=== PATIENT | female | born 1975 | race Caucasian/White ===

== ENCOUNTER 2018-08-10 21:53 | Emergency (ER) | payer MEDICAID, SELFPAY ==
[2018-08-10 21:56] VITALS: BP 161/83; PULSE 92; RESP 26; TEMP 36.5; O2SAT 100
--- NOTE | 2018-08-10 22:04 | DI.CT_ITS ---
SYMPTOM/DIAGNOSIS: EPIGASTRIC ABD PAIN RADIATING TO BACK, ? AAA RUPTURE, CHOLECYSTITIS, APPENDICITIS OR SMALL BOWEL OBSTRUCTION CTA CHEST, ABDOMEN AND PELVIS: CT angiography was performed with multi slice acquisition and multi planar and 3D reconstruction. CT angiography of the chest, abdomen and pelvis was performed with a bolus infusion of 100 cc's of Omnipaque 350. There is no evidence of pulmonary embolic disease. Thoracic aorta and abdominal aorta appear normal. Major thoracic vessels appear normal. Unremarkable appearance of celiac trunk, SMA, INDIRA, renal arteries and iliac arteries bilaterally to the level of the proximal femoral arteries. Lungs are clear. No pleural effusion or pleural based mass. Tracheobronchial tree appears intact. No mediastinal or hilar adenopathy. No axillary or supraclavicular adenopathy. The liver, spleen and pancreas appear normal. There is cholelithiasis with question of asymmetric wall thickening of the gallbladder, cholecystitis or neoplasm not excluded. Correlation with ultrasound is recommended. Adrenals appear normal. There are multiple apparent small bilateral renal cysts. No abdominal or pelvic adenopathy. No evidence of urinary tract calcification or obstruction. Small fat containing umbilical hernia noted. No other significant abdominal wall hernia is seen. Appendix is normal. No evidence of bowel obstruction or diverticulitis. FLAT LOCKER structures are CT normal. IMPRESSION: Negative CTA chest, abdomen and pelvis.
[2018-08-10 22:22] LABS: Abs Immature Grans 0.04 k/cumm (0.0-0.09); HCT 38.8 % (36.0-46.0); HGB 13.5 g/dL (12.0-15.5); Mean Corp. HGB Concentration 34.8 g/dL (32.0-36.0); Mean Corpuscular Hemoglobin 31.6 pg (27.0-33.0); Mean Corpuscular Volume 90.9 fL (80-95); Mean Platelet Volume 10.7 fL (8.0-11.0); Platelet Count 244 x1000/uL (130-400); RBC 4.27 m/cumm (4.00-5.20); RBC Distribution Width 13.5 % (11.7-14.6); White Blood Cell Count 12.21 k/cumm (4.4-10.8)
[2018-08-10 22:23] LABS: Bilirubin Small (Negative); Blood Negative (Negative); Clarity Sl Cloudy; Glucose Negative (Negative); Ketones Trace mg/dL (Negative); Leukocyte Esterase Trace (Negative); Nitrite Negative (Negative); Specific Gravity >= 1.030 (1.005-1.025); Urobilinogen 0.2 EU/dL (Up TO 0.2); pH 5.5 (5-8)
[2018-08-10] MEDS: MORPHine 10 MG/ML VIAL 4 MG IVP (22:24)
[2018-08-10] MEDS: Normal Saline 1,000 ML 1000 ML IV (22:24)
[2018-08-10 22:40] LABS: Bacteria Rare HPF (Negative); Crystals Negative HPF (Negative); Epithelial Cells Moderate HPF (Negative); RBC 0-2 (0-2); WBC 20-50 HPF (0-5)
[2018-08-10 22:41] LABS: C & S Indicated? Yes; Casts Negative LPF (Negative); Mucus Trace (Negative)
[2018-08-10 22:52] LABS: Absolute Lymphocyte Count 2.44 k/cumm (1.2-3.4); Absolute Monocyte Count 0.49 k/cumm (0.11-0.7); Absolute Neutrophil Count 9.28 k/cumm (1.2-6.7); Atypical Lymphocytes % 5
[2018-08-10 22:53] LABS: Diff Comment Manual Differential; RBC Morphology Normal
[2018-08-10] MEDS: Omnipaque 350 MG/ML 100 ML BTL IJ (22:56)
[2018-08-10 22:57] LABS: Lipase 179 U/L (73-393); Magnesium 2.1 mg/dL (1.8-2.4)
[2018-08-10 23:03] LABS: ALT 21 U/L (12-78); AST 24 U/L (15-37); Albumin 3.3 g/dL (3.4-5.0); Alkaline Phosphatase 69 U/L (46-116); Anion Gap 13.2 mmol/L (3-11); BUN 13 mg/dL (7-18); Bilirubin, Total 0.3 mg/dL (0.2-1.0); CO2 23.8 mmol/L (21.0-32.0); CREATININE 0.97 mg/dL (0.55-1.02); Calcium 9.4 mg/dL (8.5-10.1); Chloride 98 mmol/L (98-107); Glucose 201 mg/dL (70-100); Potassium 3.8 mmol/L (3.5-5.1); Sodium 135 mmol/L (136-145); Total Protein 8.7 g/dL (6.4-8.2)
[2018-08-10 23:04] LABS: Troponin I < 0.02 ng/mL (0.00-0.06)
--- NOTE | 2018-08-10 23:38 | ED.GENADUL_ITS ---
Discharge Plan Disposition Patient Disposition: HOME Condition: Improving Discharge Details Chief Complaint: Abd Prob Clinical Impression: Biliary colic, Cholelithiasis, UTI (urinary tract infection) Reason For Visit: PHILLIP Primary Care Provider: Neelam Guerrero ED Provider: Yoselin Oconnor Home Meds and New Rx's Prescriptions: New cephalexin [Keflex] 500 mg capsule 500 mg PO BID 5 Days Qty: 10 RF: 0 Continued aspirin [Aspirin Low-Strength] 81 MG tablet,chewable 162 mg PO DAILY RF: 0 atorvastatin 80 MG tablet 80 mg PO DAILY Qty: 90 RF: 3 nitroglycerin 0.4 MG tablet, sublingual 0.4 mg Sublingual Q10MIN Qty: 25 RF: 11 metoprolol succinate 50 mg tablet extended release 24 hr 50 mg PO DAILY Qty: 90 RF: 3 lisinopril 10 mg tablet 10 mg PO DAILY Qty: 90 RF: 3 Discharge Instructions Instructions: Biliary Colic (ED), Urinary Tract Infection in Women (ED) Additional Instructions: Take the antibiotics until finished. Return to the hospital tomorrow to obtain your gallbladder ultrasound for follow-up of the results and the emergency department. Alternate Tylenol and Motrin as needed and directed for pain. Limit your amount of fried or fatty type foods as they can make your pain worse. Follow-up with your primary care doctor in 1 week for reevaluation as needed. Return immediately to the emergency department any worsening or new concerning symptoms. Discharge Data Discharge Physician: Yoselin Oconnor Medical Decision Making 43-year-old female with history of DC, hypertension, hyperlipidemia and 2 cardiac stents who presents with abdominal pain with radiation to her back since 6 PM tonight. States no menses for the last 3 months, but has been irregular for several months. No chest pain or shortness of breath. Blood pressure mildly hypertensive. Heart rate 90s. Remainder vitals within normal limits. Afebrile. Urine test negative. EKG notes a rate of 89, sinus, no acute ST findings. Differential diagnosis includes ruptured AAA, cholecystitis, appendicitis, small bowel obstruction, colitis. Will place an IV, labs, urinalysis, CT abdomen and pelvis, bolus IV fluids and will give a dose of morphine. 1215am --labs and imaging reviewed. White blood cell count 12. Urinalysis notes 20-50 WBCs, trace leukocyte esterase, urine culture sent. With UTI symptoms, will treat with antibiotics for UTI. CT notes cholelithiasis as well as some thickening or contraction of the gallbladder with recommendation for nonemergent ultrasound. Patient states her pain is much improved and she is requesting to go home. With normal vital signs, normal liver function, I do not see an indication for emergent ultrasound and patient is agreeable. Patient states she has had this pain intermittently for months, and worse tonight after eating fried chicken. An order was placed for a gallbladder ultrasound and patient was instructed to return to the hospital tomorrow for this ultrasound in the morning and to follow-up in the emergency department for results. She was sent home with a prescription for Keflex. She is instructed to alternate Tylenol and Motrin, limit fried or fatty foods, and to return here tomorrow morning for ultrasound and anytime earlier for any worsening symptoms. Medical Records Medical records reviewed: Yes I reviewed the patient's medical records. Imaging Data Radiologic Study: Radiologist's impression: CT Angiography Chest With Contrast EXAM DATE/TIME: 08/10/2018 10:40 PM FINDINGS: Pulmonary arteries: Unremarkable. No obvious pulmonary emboli. Aorta: Unremarkable. No aortic aneurysm. No aortic dissection. Lungs: Unremarkable. No consolidation. No masses. No suspicious nodules. Pleural space: Unremarkable. No pneumothorax. No pleural effusion. Heart: Unremarkable. No pericardial effusion. No obvious heart strain. Lymph nodes: Unremarkable. No enlarged lymph nodes. Bones/joints: Unremarkable. No acute fracture. Soft tissues: Unremarkable. IMPRESSION: No acute findings. CT Angiography Abdomen and Pelvis With Contrast EXAM DATE/TIME: 08/10/2018 10:40 PM FINDINGS: VASCULATURE: Aorta: No aortic aneurysm. No aortic dissection. Celiac trunk and mesenteric arteries: No occlusion or significant stenosis. Renal arteries: No occlusion or significant stenosis. Right iliac arteries: No occlusion or significant stenosis. Right femoral/popliteal arteries: No occlusion or significant stenosis of the imaged proximal femoral artery. The popliteal artery was not imaged. Left iliac arteries: No occlusion or significant stenosis. Left femoral/popliteal arteries: No occlusion or significant stenosis of the imaged proximal femoral artery. The popliteal artery was not imaged. ABDOMEN: Liver: No mass. Gallbladder and bile ducts: Stones in the gallbladder. Pancreas: Unremarkable. No mass. No ductal dilation. Spleen: Unremarkable. No splenomegaly. Adrenals: Unremarkable. No mass. Kidneys and ureters: Unremarkable. No solid mass. No hydronephrosis. Stomach and bowel: Unremarkable. No obstruction. No mucosal thickening. Appendix: Normal appendix. PELVIS: Bladder: Unremarkable. No mass. Reproductive: Unremarkable as visualized. ABDOMEN and PELVIS: Intraperitoneal space: Unremarkable. No free air. No significant fluid collection. Bones/joints: No acute fracture. No dislocation. Soft tissues: Unremarkable. Lymph nodes: Unremarkable. No enlarged lymph nodes. IMPRESSION: Cholelithiasis. Also an unusual contour and possibly some focal wall thickening or contraction of the gallbladder. Nonemergent ultrasound could be done for further characterization. Lab Data Lab results reviewed: Yes I reviewed the patient's lab results. 08/10/18 22:13 Urine - Reflex from Ua Urine Culture - Pending Laboratory Tests Range/Units 08/10/18 08/10/18 08/10/18 22:00 22:00 22:00 WBC (4.4-10.8) k/cumm 12.21 H RBC (4.00-5.20) m/cumm 4.27 Hgb (12.0-15.5) g/dL 13.5 Hct (36.0-46.0) % 38.8 MCV (80-95) fL 90.9 MCH (27.0-33.0) pg 31.6 MCHC (32.0-36.0) g/dL 34.8 RDW (11.7-14.6) % 13.5 Plt Count (130-400) x1000/uL 244 MPV (8.0-11.0) fL 10.7 Immature Gran % See Differential Neutrophils % 72.0 Band Neutrophils % % 4.0 Lymphocytes % 15.0 Atypical Lymphs % 5 Monocytes % 4.0 Eosinophils % 0.0 Basophils % 0.0 Absolute Neutrophils (1.2-6.7) k/cumm 9.28 H Absolute Lymphocytes (1.2-3.4) k/cumm 2.44 Absolute Monocytes (0.11-0.7) k/cumm 0.49 Absolute Eosinophils (0.0-0.7) k/cumm 0.00 Absolute Basophils (0.0-0.2) k/cumm 0.00 Differential Comment Manual differential RBC Morphology Normal Sodium (136-145) mmol/L 135 L Potassium (3.5-5.1) mmol/L 3.8 Chloride (98-107) mmol/L 98 Carbon Dioxide (21.0-32.0) mmol/L 23.8 Anion Gap (3-11) mmol/L 13.2 H BUN (7-18) mg/dL 13 Creatinine (0.55-1.02) mg/dL 0.97 Estimated GFR/1.73 m2 (mL/min/1.73m2) >= 60.00 Glucose (70-100) mg/dL 201 H Calcium (8.5-10.1) mg/dL 9.4 Magnesium (1.8-2.4) mg/dL 2.1 Total Bilirubin (0.2-1.0) mg/dL 0.3 AST (15-37) U/L 24 ALT (12-78) U/L 21 Alkaline Phosphatase (46-116) U/L 69 Troponin I (0.00-0.06) ng/mL < 0.02 Total Protein (6.4-8.2) g/dL 8.7 H Albumin (3.4-5.0) g/dL 3.3 L Lipase (73-393) U/L 179 Urine Color (Yellow) Urine Clarity Urine pH (5-8) Ur Specific [place] (1.005-1.025) Urine Protein (Negative) mg/dL Urine Ketones (Negative) mg/dL Urine Blood (Negative) Urine Nitrite (Negative) Urine Bilirubin (Negative) Urine Urobilinogen (Up TO 0.2) EU/dL Ur Leukocyte Esterase (Negative) Urine RBC (0-2) Urine WBC (0-5) HPF Ur Epithelial Cells (Negative) HPF Urine Crystals (Negative) HPF Urine Bacteria (Negative) HPF Urine Casts (Negative) LPF Urine Mucus (Negative) Urine Other (Negative) Ur Culture Indicated? Urine Glucose (Negative) mg/dL Range/Units 08/10/18 22:13 WBC (4.4-10.8) k/cumm RBC (4.00-5.20) m/cumm Hgb (12.0-15.5) g/dL Hct (36.0-46.0) % MCV (80-95) fL MCH (27.0-33.0) pg MCHC (32.0-36.0) g/dL RDW (11.7-14.6) % Plt Count (130-400) x1000/uL MPV (8.0-11.0) fL Immature Gran % Neutrophils % Band Neutrophils % % Lymphocytes % Atypical Lymphs % Monocytes % Eosinophils % Basophils % Absolute Neutrophils (1.2-6.7) k/cumm Absolute Lymphocytes (1.2-3.4) k/cumm Absolute Monocytes (0.11-0.7) k/cumm Absolute Eosinophils (0.0-0.7) k/cumm Absolute Basophils (0.0-0.2) k/cumm Differential Comment RBC Morphology Sodium (136-145) mmol/L Potassium (3.5-5.1) mmol/L Chloride (98-107) mmol/L Carbon Dioxide (21.0-32.0) mmol/L Anion Gap (3-11) mmol/L BUN (7-18) mg/dL Creatinine (0.55-1.02) mg/dL Estimated GFR/1.73 m2 (mL/min/1.73m2) Glucose (70-100) mg/dL Calcium (8.5-10.1) mg/dL Magnesium (1.8-2.4) mg/dL Total Bilirubin (0.2-1.0) mg/dL AST (15-37) U/L ALT (12-78) U/L Alkaline Phosphatase (46-116) U/L Troponin I (0.00-0.06) ng/mL Total Protein (6.4-8.2) g/dL Albumin (3.4-5.0) g/dL Lipase (73-393) U/L Urine Color (Yellow) Yellow Urine Clarity Sl cloudy Urine pH (5-8) 5.5 Ur Specific [place] (1.005-1.025) >= 1.030 H Urine Protein (Negative) mg/dL 30 H Urine Ketones (Negative) mg/dL Trace H Urine Blood (Negative) Negative Urine Nitrite (Negative) Negative Urine Bilirubin (Negative) Small H Urine Urobilinogen (Up TO 0.2) EU/dL 0.2 Ur Leukocyte Esterase (Negative) Trace H Urine RBC (0-2) 0-2 Urine WBC (0-5) HPF 20-50 Ur Epithelial Cells (Negative) HPF Moderate Urine Crystals (Negative) HPF Negative Urine Bacteria (Negative) HPF Rare Urine Casts (Negative) LPF Negative Urine Mucus (Negative) Trace Urine Other (Negative) Ur Culture Indicated? Yes Urine Glucose (Negative) mg/dL Negative ECG Data Attestation: I personally reviewed and interpreted this ECG (s) as follows: Interpretation: rate of 89, sinus, no acute ST elevation or depression. QTc 445. QRS 92. HPI General Mode of arrival: ambulatory . Date/Time Provider Initiated Documentation: 08/10/18 22:04 . Limitations to Documentation: no limitations . Information obtained by: patient . HPI Narrative: Patient is a 43-year-old female with history of DC, hypertension, hyperlipidemia presents with abdominal pain since 6 PM. Patient states that the pain feels like it is pushing in her epigastric region and radiating to her back. She admits to some nausea but denies any vomiting or diarrhea. She admits to some urinary hesitancy and dysuria 3 days ago. She states she had a small bowel movement today but states it was smaller than usual. She denies any rectal bleeding. She states her last menstrual period was 3 months ago, but she has been irregular for the past 7 months. She denies any known fever, chest pain or shortness of breath. Related Data Home Medications Medication Instructions Recorded Confirmed aspirin [Aspirin Low-Strength] 162 mg PO DAILY tab-cap 12/04/12 08/10/18 atorvastatin 80 mg PO DAILY #90 tab-cap 03/22/17 08/10/18 nitroglycerin 0.4 mg SUBLINGUAL Q10MIN #25 03/22/17 08/10/18 tab.subl lisinopril 10 mg tablet 10 mg PO DAILY #90 tab-cap 04/06/18 08/10/18 metoprolol succinate ER 50 mg 50 mg PO DAILY #90 tab 04/06/18 08/10/18 tablet,extended release 24 hr cephalexin [Keflex] 500 mg PO BID 5 Days #10 cap 08/11/18 Previous Rx's Medication Instructions Recorded atorvastatin 80 mg PO DAILY #90 tab-cap 03/22/17 nitroglycerin 0.4 mg SUBLINGUAL Q10MIN #25 03/22/17 tab.subl lisinopril 10 mg tablet 10 mg PO DAILY #90 tab-cap 04/06/18 metoprolol succinate ER 50 mg 50 mg PO DAILY #90 tab 04/06/18 tablet,extended release 24 hr cephalexin [Keflex] 500 mg PO BID 5 Days #10 cap 08/11/18 Allergies Allergy/AdvReac Type Severity Reaction Status Date / Time venom-honey bee Allergy Severe SWELLING Unverified 04/06/17 11:34 General Stated Complaint: Abd Prob OUMAR: 3 Review of Systems Review of Systems All systems reviewed & are unremarkable except as noted in HPI and below Constitutional Reports as per HPI, Denies chills and Denies fever(s) Eyes Denies blurry vision ENT Denies dizziness, Denies sore throat and Denies throat swelling Cardiovascular Denies chest pain and Denies dyspnea Respiratory Denies cough and Denies dyspnea Gastrointestinal Reports abdominal pain, Denies diarrhea, Reports nausea and Denies vomiting Genitourinary Denies hematuria and Denies dysuria Musculoskeletal Denies back pain and Denies numbness Integumentary/Breasts Denies lesions and Denies rash Neurologic Denies dizziness, Denies focal weakness and Denies numbness Allergic/Immunologic Denies throat swelling PFS Medical History Hyperlipemia (Acute) HTN (hypertension) (Chronic) Myocardial infarction (Chronic) Surgical History Rectal fistula (Acute) History of coronary artery stent placement (Chronic) Stent placement rectal fissure Family History Mother Essential hypertension Depression Hyperlipidemia Father Essential hypertension Heart disease Hyperlipidemia Myocardial infarction Brother No problems noted. Grandfather Diabetes Heart disease Hyperlipidemia Neoplasm Stroke Grandfather TB (tuberculosis) Grandmother Diabetes Essential hypertension Heart disease Hyperlipidemia Neoplasm Stroke Grandmother TB (tuberculosis) Daughter No problems noted. Daughter No problems noted. Daughter No problems noted. Social History Smoking and Tabacco status: Current every day alcohol intake: current alcohol intake frequency: a few times a month substance use type: does not use Exam Const General: cooperative and in distress mild HENMT Head: normal to inspection Face and sinus: normal facial exam Eyes General: appearance normal, both eyes and all related structures EOM: EOM intact bilaterally Neck Neck: normal visual inspection and No submandibular swelling Chest Chest: normal inspection of the chest and no tenderness Resp Effort & Inspection: normal respiratory effort and able to speak in complete sentences Auscultation: clear to auscultation bilaterally Cardio Rate: regular rate Rhythm: regular rhythm GI Inspection: normal to inspection and obesity Palpation: soft, not firm, not rigid and tender (Diffuse, worse in right upper quadrant, left upper quadrant, epigastrium) Auscultation: hypoactive bowel sounds Skin General skin exam: no rashes or lesions noted Neuro General: alert, awake and oriented x3 Cognition: normal cognition Speech: speech normal Motor: muscle tone normal throughout Sensory Exam: no sensory deficits noted Extrem General: normal to inspection, full ROM, normal capillary refill and no edema Psych Appearance: grossly normal Mental Status: mental status grossly normal Speech and Movement: speech and movement normal Affect: normal affect Course Vital Signs Temperature 97.7 F 08/10/18 21:56 Pulse 92 H 08/10/18 21:56 Respiratory Rate 26 H 08/10/18 21:56 Blood Pressure 161/83 H 08/10/18 21:56 Pulse Oximetry 100 08/10/18 21:56 Temperature 97.7 F 08/10/18 21:56 Temperature Source Temporal Artery Scan 08/10/18 21:56 Pulse 92 H 08/10/18 21:56 Respiratory Rate 26 H 08/10/18 21:56 Respiratory Effort Non-Labored 08/10/18 22:28 Blood Pressure 161/83 H 08/10/18 21:56 Blood Pressure Position Supine 08/10/18 21:56 Pulse Oximetry 100 08/10/18 21:56 Oxygen Delivery Method Room Air 08/10/18 21:56 Oxygen Flow Rate 0 08/10/18 21:56 Lab/Test Results Lab/Test Results: 08/10/18 22:13 Urine - Reflex from Ua Urine Culture - Pending Laboratory Tests Range/Units 08/10/18 08/10/18 08/10/18 22:00 22:00 22:00 WBC (4.4-10.8) k/cumm 12.21 H RBC (4.00-5.20) m/cumm 4.27 Hgb (12.0-15.5) g/dL 13.5 Hct (36.0-46.0) % 38.8 MCV (80-95) fL 90.9 MCH (27.0-33.0) pg 31.6 MCHC (32.0-36.0) g/dL 34.8 RDW (11.7-14.6) % 13.5 Plt Count (130-400) x1000/uL 244 MPV (8.0-11.0) fL 10.7 Immature Gran % See Differential Neutrophils % 72.0 Band Neutrophils % % 4.0 Lymphocytes % 15.0 Atypical Lymphs % 5 Monocytes % 4.0 Eosinophils % 0.0 Basophils % 0.0 Absolute Neutrophils (1.2-6.7) k/cumm 9.28 H Absolute Lymphocytes (1.2-3.4) k/cumm 2.44 Absolute Monocytes (0.11-0.7) k/cumm 0.49 Absolute Eosinophils (0.0-0.7) k/cumm 0.00 Absolute Basophils (0.0-0.2) k/cumm 0.00 Differential Comment Manual differential RBC Morphology Normal Sodium (136-145) mmol/L 135 L Potassium (3.5-5.1) mmol/L 3.8 Chloride (98-107) mmol/L 98 Carbon Dioxide (21.0-32.0) mmol/L 23.8 Anion Gap (3-11) mmol/L 13.2 H BUN (7-18) mg/dL 13 Creatinine (0.55-1.02) mg/dL 0.97 Estimated GFR/1.73 m2 (mL/min/1.73m2) >= 60.00 Glucose (70-100) mg/dL 201 H Calcium (8.5-10.1) mg/dL 9.4 Magnesium (1.8-2.4) mg/dL 2.1 Total Bilirubin (0.2-1.0) mg/dL 0.3 AST (15-37) U/L 24 ALT (12-78) U/L 21 Alkaline Phosphatase (46-116) U/L 69 Troponin I (0.00-0.06) ng/mL < 0.02 Total Protein (6.4-8.2) g/dL 8.7 H Albumin (3.4-5.0) g/dL 3.3 L Lipase (73-393) U/L 179 Urine Color (Yellow) Urine Clarity Urine pH (5-8) Ur Specific [place] (1.005-1.025) Urine Protein (Negative) mg/dL Urine Ketones (Negative) mg/dL Urine Blood (Negative) Urine Nitrite (Negative) Urine Bilirubin (Negative) Urine Urobilinogen (Up TO 0.2) EU/dL Ur Leukocyte Esterase (Negative) Urine RBC (0-2) Urine WBC (0-5) HPF Ur Epithelial Cells (Negative) HPF Urine Crystals (Negative) HPF Urine Bacteria (Negative) HPF Urine Casts (Negative) LPF Urine Mucus (Negative) Urine Other (Negative) Ur Culture Indicated? Urine Glucose (Negative) mg/dL Range/Units 08/10/18 22:13 WBC (4.4-10.8) k/cumm RBC (4.00-5.20) m/cumm Hgb (12.0-15.5) g/dL Hct (36.0-46.0) % MCV (80-95) fL MCH (27.0-33.0) pg MCHC (32.0-36.0) g/dL RDW (11.7-14.6) % Plt Count (130-400) x1000/uL MPV (8.0-11.0) fL Immature Gran % Neutrophils % Band Neutrophils % % Lymphocytes % Atypical Lymphs % Monocytes % Eosinophils % Basophils % Absolute Neutrophils (1.2-6.7) k/cumm Absolute Lymphocytes (1.2-3.4) k/cumm Absolute Monocytes (0.11-0.7) k/cumm Absolute Eosinophils (0.0-0.7) k/cumm Absolute Basophils (0.0-0.2) k/cumm Differential Comment RBC Morphology Sodium (136-145) mmol/L Potassium (3.5-5.1) mmol/L Chloride (98-107) mmol/L Carbon Dioxide (21.0-32.0) mmol/L Anion Gap (3-11) mmol/L BUN (7-18) mg/dL Creatinine (0.55-1.02) mg/dL Estimated GFR/1.73 m2 (mL/min/1.73m2) Glucose (70-100) mg/dL Calcium (8.5-10.1) mg/dL Magnesium (1.8-2.4) mg/dL Total Bilirubin (0.2-1.0) mg/dL AST (15-37) U/L ALT (12-78) U/L Alkaline Phosphatase (46-116) U/L Troponin I (0.00-0.06) ng/mL Total Protein (6.4-8.2) g/dL Albumin (3.4-5.0) g/dL Lipase (73-393) U/L Urine Color (Yellow) Yellow Urine Clarity Sl cloudy Urine pH (5-8) 5.5 Ur Specific [place] (1.005-1.025) >= 1.030 H Urine Protein (Negative) mg/dL 30 H Urine Ketones (Negative) mg/dL Trace H Urine Blood (Negative) Negative Urine Nitrite (Negative) Negative Urine Bilirubin (Negative) Small H Urine Urobilinogen (Up TO 0.2) EU/dL 0.2 Ur Leukocyte Esterase (Negative) Trace H Urine RBC (0-2) 0-2 Urine WBC (0-5) HPF 20-50 Ur Epithelial Cells (Negative) HPF Moderate Urine Crystals (Negative) HPF Negative Urine Bacteria (Negative) HPF Rare Urine Casts (Negative) LPF Negative Urine Mucus (Negative) Trace Urine Other (Negative) Ur Culture Indicated? Yes Urine Glucose (Negative) mg/dL Negative POC- Test(urine) Negative
[2018-08-10 23:44] VITALS: BP 127/75; PULSE 76; RESP 18; O2SAT 96
--- NOTE | 2018-08-10 23:56 | DI.VRAD_ITS ---
EXAM: CT Angiography Chest With Contrast EXAM DATE/TIME: 08/10/2018 10:40 PM CLINICAL HISTORY: 43 years old, female; Pain; Other: Epigastric radiating to back; Abdominal pain; Additional info: R/O aaa rupture, cholycystitis, appendicitis, sbo. 70sec delay abd/pelvis series performed per er physician request TECHNIQUE: Axial computed tomographic angiography images of the chest with intravenous contrast using CT angiography protocol. All CT scans at this facility use at least one of these dose optimization techniques: automated exposure control; mA and/or kV adjustment per patient size (includes targeted exams where dose is matched to clinical indication); or iterative reconstruction. MIP reconstructed images were created and reviewed. CONTRAST: Contrast Material: 100 ml of [id number]; Contrast Route: iv COMPARISON: CR ABD FLAT UPRIGHT PA CHEST 04/04/2016 11:39 PM FINDINGS: Pulmonary arteries: Unremarkable. No obvious pulmonary emboli. Aorta: Unremarkable. No aortic aneurysm. No aortic dissection. Lungs: Unremarkable. No consolidation. No masses. No suspicious nodules. Pleural space: Unremarkable. No pneumothorax. No pleural effusion. Heart: Unremarkable. No pericardial effusion. No obvious heart strain. Lymph nodes: Unremarkable. No enlarged lymph nodes. Bones/joints: Unremarkable. No acute fracture. Soft tissues: Unremarkable. IMPRESSION: No acute findings. EXAM: CT Angiography Abdomen and Pelvis With Contrast EXAM DATE/TIME: 08/10/2018 10:40 PM CLINICAL HISTORY: 43 years old, female; Pain; Other: Epigastric radiating to back; Abdominal pain; Additional info: R/O aaa rupture, cholycystitis, appendicitis, sbo. 70sec delay abd/pelvis series performed per er physician request TECHNIQUE: Axial computed tomographic angiography images of the abdomen and pelvis with intravenous contrast material, including non-contrast images if performed. MIP and/or 3D reconstructed images were created and reviewed. All CT scans at this facility use at least one of these dose optimization techniques: automated exposure control; mA and/or kV adjustment per patient size (includes targeted exams where dose is matched to clinical indication); or iterative reconstruction. COMPARISON: CR ABD FLAT UPRIGHT PA CHEST 04/04/2016 11:39 PM FINDINGS: VASCULATURE: Aorta: No aortic aneurysm. No aortic dissection. Celiac trunk and mesenteric arteries: No occlusion or significant stenosis. Renal arteries: No occlusion or significant stenosis. Right iliac arteries: No occlusion or significant stenosis. Right femoral/popliteal arteries: No occlusion or significant stenosis of the imaged proximal femoral artery. The popliteal artery was not imaged. Left iliac arteries: No occlusion or significant stenosis. Left femoral/popliteal arteries: No occlusion or significant stenosis of the imaged proximal femoral artery. The popliteal artery was not imaged. ABDOMEN: Liver: No mass. Gallbladder and bile ducts: Stones in the gallbladder. Pancreas: Unremarkable. No mass. No ductal dilation. Spleen: Unremarkable. No splenomegaly. Adrenals: Unremarkable. No mass. Kidneys and ureters: Unremarkable. No solid mass. No hydronephrosis. Stomach and bowel: Unremarkable. No obstruction. No mucosal thickening. Appendix: Normal appendix. PELVIS: Bladder: Unremarkable. No mass. Reproductive: Unremarkable as visualized. ABDOMEN and PELVIS: Intraperitoneal space: Unremarkable. No free air. No significant fluid collection. Bones/joints: No acute fracture. No dislocation. Soft tissues: Unremarkable. Lymph nodes: Unremarkable. No enlarged lymph nodes. IMPRESSION: Cholelithiasis. Also an unusual contour and possibly some focal wall thickening or contraction of the gallbladder. Nonemergent ultrasound could be done for further characterization. Dictated and Authenticated by: Juan Webb MD. Ordering:HI Wyatt MD
[2018-08-11 00:32] VITALS: BP 125/67; PULSE 73; RESP 18; O2SAT 97
[2018-08-11] MEDS: Cephalexin 500 MG CAP PO (00:59)
== END 2018-08-11 01:08 | disposition home or self-care (01) ==
PROVIDERS: Emergency Provider Physician Assistant
DX: K80.51 Calculus of bile duct without cholangitis or cholecystitis with obstruction (principal); N39.0 Urinary tract infection, site not specified; I25.2 Old myocardial infarction; I10 Essential (primary) hypertension
CPT/HCPCS: 36415; 71275; 74177; 80053; 81025; 83690; 93005; 96361; 96374; 99285; 81003; 81015; 83735; 84484; 85025; 87086; 93010; J2270; J3490

== ENCOUNTER 2019-06-06 09:52 | Outpatient (CLI) | payer MEDICAID, SELFPAY ==
[2019-06-06 13:02] LABS: Abs Immature Grans 0.06 k/cumm (0.0-0.09); Absolute Basophil Count 0.03 k/cumm (0.0-0.2); Absolute Eosinophil Count 0.08 k/cumm (0.0-0.7); Absolute Lymphocyte Count 1.85 k/cumm (1.2-3.4); Absolute Monocyte Count 0.73 k/cumm (0.11-0.7); Absolute Neutrophil Count 8.12 k/cumm (1.2-6.7); Basophils % 0.3; Eosinophils % 0.7; HCT 44.2 % (36.0-46.0); HGB 14.8 g/dL (12.0-15.5); Immature Grans % 0.6; Mean Corp. HGB Concentration 33.5 g/dL (32.0-36.0); Mean Corpuscular Hemoglobin 32.4 pg (27.0-33.0); Mean Corpuscular Volume 96.7 fL (80-95); Mean Platelet Volume 10.6 fL (8.0-11.0); Monocytes % 6.7; Neutrophils % 74.7; Platelet Count 300 x1000/uL (130-400); RBC 4.57 m/cumm (4.00-5.20); RBC Distribution Width 14.6 % (11.7-14.6); White Blood Cell Count 10.87 k/cumm (4.4-10.8)
[2019-06-06 13:18] LABS: ALT 23 U/L (14-59); AST 28 U/L (15-37); Albumin 3.3 g/dL (3.4-5.0); Alkaline Phosphatase 59 U/L (46-116); Anion Gap 9.4 mmol/L (3-11); BUN 8 mg/dL (7-18); Bilirubin, Total 0.4 mg/dL (0.2-1.0); CO2 28.6 mmol/L (21.0-32.0); CREATININE 0.74 mg/dL (0.55-1.02); Calcium 9.4 mg/dL (8.5-10.1); Calculated LDL 169 mg/dL; Chloride 101 mmol/L (98-107); Cholesterol 253 mg/dL (<200); Glucose 146 mg/dL (74-106); HDL Cholesterol 61 mg/dL (40-60); Potassium 4.5 mmol/L (3.5-5.1); Sodium 139 mmol/L (136-145); Total Protein 7.4 g/dL (6.4-8.2); Triglyceride 119 mg/dL (<150)
[2019-06-06 13:22] LABS: Hemoglobin A1C 5.3 % (4.5-6.2)
== END 2019-06-06 10:12 ==
PROVIDERS: Visit Provider Internal Medicine
DX: R50.9 Fever, unspecified (principal); R07.89 Other chest pain; R73.09 Other abnormal glucose; E78.5 Hyperlipidemia, unspecified
CPT/HCPCS: 36415; 80053; 80061; 83036; 85025

== ENCOUNTER 2019-08-08 02:19 | Outpatient (CLI) | payer MEDICAID, SELFPAY ==
--- NOTE | 2019-08-08 11:15 | DI.MAMMO_ITS ---
EXAM: MG MAMMO SCREENING CLINICAL HISTORY: screening Z12.39. TECHNIQUE: Bilateral full field digital CC and MLO mammographic images were obtained with 3D tomosyn thesis and utilizing computer aided detection (CAD). COMPARISON: Available for comparison. FINDINGS: Masses/Architectural Distortion: None seen. Microcalcifications: No suspicious pleomorphic-type are seen. Skin Thickening/Nipple Retraction: None. IMPRESSION: 1. No significant interval change with no specific features of malignancy noted. 2. Unless there is more urgent need, screening mammography is recommended, as per [employer] guidelines. ACR BI-RAD Category- 1 Negative Breast Density - Category B - Scattered areas of fibroglandular density A negative radiographic report should not delay biopsy if a dominant or clinically suspicious mass is present. Up to ten percent of cancers are not identified on mammography. A negative report may reinforce clinical impression. Adenosis and dense breasts may obscure an underlying neoplasm. False positive reports average 6 to 10%. Patient will receive a letter notifying them of these results.
== END 2019-08-08 02:39 ==
PROVIDERS: Visit Provider Internal Medicine
DX: Z12.31 Encounter for screening mammogram for malignant neoplasm of breast (principal)
CPT/HCPCS: 77063; 77067

== ENCOUNTER 2021-02-26 14:58 | Emergency (ER) | payer MEDICAID, SELFPAY ==
[2021-02-26 15:09] VITALS: BP 159/88; PULSE 97; RESP 18; TEMP 36.5; O2SAT 97
--- NOTE | 2021-02-26 16:04 | ED.GENADUL_ITS ---
Discharge Plan Disposition Patient Disposition: HOME Condition: Stable Discharge Details Clinical Impression: Easy bruising Primary Care Provider: Neelam Guerrero ED Provider: Elina Heck Home Meds and New Rx's Prescriptions: Continued nitroglycerin 0.4 mg tablet, sublingual 0.4 mg Sublingual Q10MIN Qty: 25 RF: 11 atorvastatin 80 MG tablet 80 mg PO DAILY Qty: 90 RF: 3 metoprolol succinate 50 mg tablet extended release 24 hr 50 mg PO DAILY Qty: 90 RF: 3 lisinopril 10 mg tablet 10 mg PO DAILY Qty: 90 RF: 3 No Action aspirin [Aspirin Low-Strength] 81 MG tablet,chewable 162 mg PO DAILY RF: 0 Discharge Instructions Instructions: Contusion in Adults (ED) Additional Instructions: Hold off on taking your aspirin for 3 days. Follow up with primary care provider in 3-5 days. Return to ED sooner if any worsening or concerns. Increase oral fluids. Your labs today are all within normal limit. Referrals: Neelam Guerrero, [employer]ERSON [Primary Care Provider] - 3 days (Easy bruising) Discharge Data Discharge Date/Time-TO BE ENTERED AT DEPARTURE: 02/26/21 17:09 Medical Decision Making 46 year old female presents to ED with chief complaint of contusion to her abdomen which has been there approximately 1 week. She denies trauma, pain or any associated symtpms. She does report easy bruising. She takes aspirin daily. Abdomen is soft, non-tender, no palpable masses. She does have some small bruises noted to her arms as well. Daily smoker and endorses marijuana, denies alcohol. Basic labs ordered including PT PTT Labs are largely unremarkable. No evidence of anemia. PT PTT INR all within normal limits. Will have patient follow-up with primary care provider regarding bruising. This time I do not feel that imaging is warranted due to no tenderness with palpation no masses no trauma. Patient instructed to follow-up with PCP. This text was generated using [employer] system, please disregard any oddities of phrase or misspellings. HPI General Mode of arrival: ambulatory . Date/Time Provider Initiated Documentation: 02/26/21 15:29 . Limitations to Documentation: no limitations . Information obtained by: patient and RN notes reviewed . HPI Narrative: 46 year old female presents to ED with chief complaint of contusion to her abdomen which has been there approximately 1 week. She denies trauma, pain or any associated symtpms. She does report easy bruising. She takes aspirin daily. Abdomen is soft, non-tender, no palpable masses. She does have some small bruises noted to her arms as well. Daily smoker and endorses marijuana, denies alcohol. Related Data Home Medications Medication Instructions Recorded Confirmed aspirin [Aspirin Low-Strength] 162 mg PO DAILY tab-cap 12/04/12 02/26/21 atorvastatin 80 mg PO DAILY #90 tab-cap 03/22/17 02/26/21 nitroglycerin 0.4 mg sublingual 0.4 mg SUBLINGUAL Q10MIN #25 06/06/19 02/26/21 tablet tab.subl metoprolol succinate 50 mg 50 mg PO DAILY #90 tab 04/02/20 02/26/21 tablet,extended release 24 hr lisinopril 10 mg tablet 10 mg PO DAILY #90 tab-cap 01/01/21 02/26/21 Previous Rx's Medication Instructions Recorded atorvastatin 80 mg PO DAILY #90 tab-cap 03/22/17 nitroglycerin 0.4 mg sublingual 0.4 mg SUBLINGUAL Q10MIN #25 06/06/19 tablet tab.subl metoprolol succinate 50 mg 50 mg PO DAILY #90 tab 04/02/20 tablet,extended release 24 hr lisinopril 10 mg tablet 10 mg PO DAILY #90 tab-cap 01/01/21 Allergies Allergy/AdvReac Type Severity Reaction Status Date / Time venom-honey bee Allergy Severe SWELLING Unverified 02/26/21 15:16 General Stated Complaint: GenMedical OUMAR: 3 Review of Systems All systems reviewed & are unremarkable except as noted in HPI and below [facility] Medical History (Updated 02/26/21 @ 16:58 by Elina Heck) HTN (hypertension) Hyperlipemia Myocardial infarction Surgical History History of coronary artery stent placement rectal fissure Rectal fistula Stent placement Family History Mother Essential hypertension Depression Hyperlipidemia Father Essential hypertension Heart disease Hyperlipidemia Myocardial infarction Brother No problems noted. Grandfather Diabetes Heart disease Hyperlipidemia Neoplasm Stroke Grandfather TB (tuberculosis) Grandmother Diabetes Essential hypertension Heart disease Hyperlipidemia Neoplasm Stroke Grandmother TB (tuberculosis) Daughter No problems noted. Daughter No problems noted. Daughter No problems noted. Social History Smoking/Tobacco Use Status: Current every day Tobacco Type: cigarettes Smoking risk assessment performed?: Yes Alcohol Intake: current Alcohol Intake frequency: a few times a month Drug use: Occasionally Substance use type: marijuana Do you feel safe at home: Yes Do you feel safe in your relationship?: Yes Exam GI Inspection: abdominal wall ecchymosis (Approximately 8x10 cm contusion to abdominal wall) Palpation: soft, no hepatosplenomegaly, no hernias, no masses, nontender and No ascites Auscultation: normal bowel sounds Course Vital Signs Vital signs: Vital Signs Temperature 36.5 C 02/26/21 15:09 Pulse 97 H 02/26/21 15:09 Respiratory Rate 18 02/26/21 15:09 Blood Pressure 159/88 H 02/26/21 15:09 Pulse Oximetry 97 02/26/21 15:09 Temperature 36.5 C 02/26/21 15:09 Temperature Source Temporal Artery Scan 02/26/21 15:09 Pulse 97 H 02/26/21 15:09 Respiratory Rate 18 02/26/21 15:09 Respiratory Effort Non-Labored 02/26/21 15:14 Blood Pressure 159/88 H 02/26/21 15:09 Blood Pressure Position Sitting 02/26/21 15:09 Pulse Oximetry 97 02/26/21 15:09 Oxygen Delivery Method Room Air 02/26/21 15:09 Oxygen Flow Rate 0 02/26/21 15:09 Pain Level 0 02/26/21 15:09
[2021-02-26 16:27] LABS: Abs Immature Grans 0.08 10^3/uL (0.0-0.06); Absolute Basophil Count 0.06 10^3/uL (0.0-0.2); Absolute Eosinophil Count 0.11 10^3/uL (0.0-0.7); Absolute Lymphocyte Count 1.91 10^3/uL (1.2-3.4); Absolute Monocyte Count 0.56 10^3/uL (0.1-0.8); Absolute Neutrophil Count 7.58 10^3/uL (1.2-6.7); Basophils % 0.6; Eosinophils % 1.1; HCT 47.5 % (36.0-46.0); HGB 16.3 g/dL (11.2-15.7); Immature Grans % 0.8; Lymphocytes % 18.5; MCH 32.9 pg (27.0-33.0); MCHC 34.3 % (32.0-36.0); MCV 95.8 fL (80-95); MPV 9.3 fL (8.0-11.0); Monocytes % 5.4; Neutrophils % 73.6; Nucleated RBC 0 %; Platelet Count 277 10^3/uL (130-400); RBC 4.96 10^6/uL (3.93-5.22); RDW 13.2 % (11.7-14.6); RDW-SD 46.8 fL
[2021-02-26 16:35] VITALS: RESP 18
[2021-02-26 16:41] LABS: PTT Activated 23.6 sec (21.0-27.5); Prothrombin Time 10.4 sec (9.3-11.0)
[2021-02-26 16:52] LABS: ALT 38 U/L (14-59); AST 31 U/L (15-37); Albumin 3.5 g/dL (3.4-5.0); Alkaline Phosphatase 59 U/L (46-116); Anion Gap 8.8 mmol/L (3-11); BUN 9 mg/dL (7-18); Bilirubin, Total 0.4 mg/dL (0.2-1.0); CO2 25.2 mmol/L (21.0-32.0); CREATININE 0.9 mg/dL (0.55-1.02); Calcium 9.1 mg/dL (8.5-10.1); Chloride 103 mmol/L (98-107); Glucose 102 mg/dL (74-106); Potassium 4.7 mmol/L (3.5-5.1); Sodium 137 mmol/L (136-145); Total Protein 8.1 g/dL (6.4-8.2)
== END 2021-02-26 17:09 | disposition home or self-care (01) ==
PROVIDERS: Emergency Provider Registered Nurse Emergency
DX: R23.3 Spontaneous ecchymoses (principal); Z79.82 Long term (current) use of aspirin
CPT/HCPCS: 36415; 80053; 99283; 85025; 85610; 85730

== ENCOUNTER 2022-11-28 08:23 | Emergency (ER) | payer MEDICAID, SELFPAY ==
[2022-11-28 08:27] VITALS: BP 173/84; PULSE 135; RESP 20; TEMP 36.5; O2SAT 98
--- NOTE | 2022-11-28 08:30 | DI.CT_ITS ---
Exam(s) CT HEAD WO EXAM: CT HEAD WO CLINICAL HISTORY: trauma. TECHNIQUE: Imaging Protocol: Axial computed tomography images with coronal and sagittal reformatted images were created and reviewed COMPARISON: No exams were available for comparison FINDINGS: Ventricles and Extra axial spaces: Normal in size and morphology for the patient's age. Hemorrhage: None. Cerebral parenchyma: Normal. Midline shift: None. Brainstem/Cerebellum: Normal. Calvarium: Normal. Visualized Paranasal sinuses/Mastoids: Clear. Soft Tissues: There is a right parietal scalp laceration or contusion. IMPRESSION: 1. No acute intracranial process. 2. Right parietal scalp laceration/contusion. RADIATION DOSE DELIVERED: 832.93mGy.cm Total DLP DATA REPOSITORY: All CT scans at this facility are submitted to the National Radiology Data Registry (NRDR) Dose Index Registry (DIR) with the [employer] (ACR). RADIATION OPTIMIZATION: All CT scans at this facility use at least one of these dose optimization te chniques: automated exposure control; mA and/or kV adjustment per patient size (includes targeted exa ms where dose is matched to clinical indication); or iterative reconstruction.
--- NOTE | 2022-11-28 08:31 | ED.GENADUL_ITS ---
Discharge Plan Discharge Details Chief Complaint: HeadInjury Primary Care Provider: Brett Godinez ED Provider: Sergey Coleman Home Meds and New Rx's Prescriptions: No Action nitroglycerin 0.4 mg tablet, sublingual 0.4 mg Sublingual Q10MIN Qty: 25 11RF Rx Instructions: one SL q 5 mins x 3 doses as needed for angina aspirin [Aspirin Low-Strength] 81 MG tablet,chewable 162 mg PO DAILY lisinopril 10 mg tablet 10 mg PO DAILY Qty: 30 0RF Patient Comments: not refilled by pcp metoprolol succinate 50 mg tablet extended release 24 hr 50 mg PO DAILY Qty: 30 0RF Patient Comments: not refilled by pcp Medical Decision Making Mechanical fall this morning. Sustained scalp laceration. Head CT negative. Mild bruising to the shoulders. Full range of motion. Plan. Suture was closed with 3 finesse after negative CAT scan. Patient was updated with a tetanus. Patient may have a mild concussion. HPI General Date/Time Provider Initiated Documentation: 11/28/22 08:31 . HPI Narrative: States that she lost her footing going up the stairs fell backwards hit the back of her head on the chest. Sustained laceration to scalp. Bleeding under control. No loss of consciousness. Patient states she does not feel well. Maybe a bit nauseous and confused. No neck pain. No isolated trauma to the head. States that she has not been on any medication for the past month. She did not follow-up with her primary care doctor therefore her prescriptions were not refilled. Remote history of stenting 10 years ago. Related Data Home Medications Medication Instructions Recorded Confirmed aspirin 81 mg chewable tablet 162 mg PO DAILY 12/04/12 11/28/22 (Aspirin Low-Strength) nitroglycerin 0.4 mg sublingual 0.4 mg sublingual Q10MIN ##25 12/24/21 11/28/22 tablet lisinopril 10 mg tablet 10 mg PO DAILY #30 tab-caps 09/21/22 metoprolol succinate 50 mg 50 mg PO DAILY #30 tabs 09/21/22 tablet,extended release 24 hr Previous Rx's Medication Instructions Recorded nitroglycerin 0.4 mg sublingual 0.4 mg sublingual Q10MIN ##25 12/24/21 tablet lisinopril 10 mg tablet 10 mg PO DAILY #30 tab-caps 09/21/22 metoprolol succinate 50 mg 50 mg PO DAILY #30 tabs 09/21/22 tablet,extended release 24 hr Allergies Allergy/AdvReac Type Severity Reaction Status Date / Time venom-honey bee Allergy Severe SWELLING Unverified 11/28/22 09:09 General Stated Complaint: HeadInjury OUMAR: 3 Review of Systems Narrative: 10 point review of system is negative unless otherwise stated specified in the HPI PFSH All Active Problems (Updated 12/24/21 @ 10:52 by Bindu Blanco NP) Tobacco dependence (Acute) > 30 Pack year hx Hyperlipemia (Acute) HTN (hypertension) (Chronic) Easy bruising (Acute) Medical History (Updated 12/24/21 @ 10:52 by Bindu Blanco NP) Myocardial infarction Surgical History (Updated 12/24/21 @ 10:48 by Bindu Blanco NP) History of coronary artery stent placement 2 stents rectal fissure Rectal fistula Family History Mother Essential hypertension Depression Hyperlipidemia Father Essential hypertension Heart disease Hyperlipidemia Myocardial infarction Brother No problems noted. Grandfather Diabetes Heart disease Hyperlipidemia Neoplasm Stroke Grandfather TB (tuberculosis) Grandmother Diabetes Essential hypertension Heart disease Hyperlipidemia Neoplasm Stroke Grandmother TB (tuberculosis) Daughter No problems noted. Daughter No problems noted. Daughter No problems noted. Social History Smoking/Tobacco Use Status: Current every day Tobacco Type: cigarettes Smoking risk assessment performed?: Yes Alcohol Intake: current Alcohol Intake frequency: a few times a month Drug use: Occasionally Substance use type: marijuana Do you feel safe at home: Yes Do you feel safe in your relationship?: Yes Exam Narrative Exam Narrative: General: A,A Ox3, Calm, no apparent distress, well developed, pleasant and cooperative Head Size/Shape: normocephalic, laceration to the scalp posterior aspect right side Eyes Pupils: PERRLA Extraocular Mobility: intact and symmetrical Conjunctiva: non-injected, anicteric, no discharge Ears, Nose, Throat Nares: patent bilaterally Oral Cavity: moist Neck: no masses, no crepitus Lymph Nodes: no cervical lymphadenopathy Respiratory Respiratory Effort: no dyspnea Auscultation: clear to auscultation bilaterally, normal breath sounds, no wheezing, no rales/crackles Cardiovascular Heart Auscultation: Tachycardic, normal S1, normal S2, no murmurs, no rubs, no gallops, Abdomen Inspection and Palpation: soft, non-tender, non-distended, no hepatosplenomegaly Musculoskeletal System Joints, Bones, and Muscles: no deformities Extremities: warm and well-perfused, no cyanosis, capillary refill Neuro cranial nerves II to XII grossly intact. Normal gait Strength 5/5 bilaterally upper and lower extremities. Psychiatric: good insight, good judgement, normal mood and affect Course Vital Signs Vital signs: Vital Signs Temperature 36.5 C 11/28/22 08:27 Pulse 135 H 11/28/22 08:27 Respiratory Rate 20 11/28/22 08:27 Blood Pressure 173/84 H 11/28/22 08:27 Pulse Oximetry 98 11/28/22 08:27 Temperature 36.5 C 11/28/22 08:27 Temperature Source Temporal Artery Scan 11/28/22 08:27 Pulse 135 H 11/28/22 08:27 Respiratory Rate 20 11/28/22 08:27 Blood Pressure 173/84 H 11/28/22 08:27 Blood Pressure Position Sitting 11/28/22 08:27 Pulse Oximetry 98 11/28/22 08:27 Oxygen Delivery Method Room Air 11/28/22 08:27 Oxygen Flow Rate 0 11/28/22 08:27 Procedures Laceration Laceration 1: Site: scalp Size (cm): 2 Depth: simple, single layer Local Anesthetic: Lidocaine 2% and with Epi Amount of anesthesia used (mL): 5 Skin layer closed with: other (finesse)
--- NOTE | 2022-11-28 09:14 | DI.VRAD_ITS ---
PROCEDURE INFORMATION: Exam: CT Head Without Contrast Exam date and time: 11/28/2022 9:00 AM Age: 47 years old Clinical indication: Other: Trauma, fall hit head TECHNIQUE: Imaging protocol: Computed tomography of the head without contrast. Radiation optimization: All CT scans at this facility use at least one of these dose optimization techniques: automated exposure control; mA and/or kV adjustment per patient size (includes targeted exams where dose is matched to clinical indication); or iterative reconstruction. COMPARISON: No relevant prior studies available. FINDINGS: Brain: Normal. No hemorrhage. Unremarkable white matter. No mass effect. Cerebral ventricles: No ventriculomegaly. Paranasal sinuses: There is minimal mucosal thickening in the paranasal sinuses. Mastoid air cells: Visualized mastoid air cells are well aerated. Bones/joints: Unremarkable. No acute fracture. Soft tissues: Right parietal scalp laceration and contusion. IMPRESSION: Superficial scalp injury without intra-cranial hemorrhage or acute fracture. Dictated and Authenticated by: Tracie Schaffer MD. Ordering:BELKYS Rincon MD
[2022-11-28 09:27] VITALS: BP 147/86; PULSE 126; O2SAT 99
== END 2022-11-28 09:35 | disposition home or self-care (01) ==
PROVIDERS: Emergency Provider Emergency Medicine; PCP Nurse Practitioner Family
DX: S01.01XA Laceration without foreign body of scalp, initial encounter (principal); W22.01XA Walked into wall, initial encounter
CPT/HCPCS: 12001; 90471; 99284; 70450

== ENCOUNTER 2024-01-25 11:49 | Observation (INO) | payer MEDICAID, SELFPAY ==
[2024-01-25] VITALS (72 sets, daily range): BP systolic 89–132; BP diastolic 38–59; PULSE 83–109; RESP 13–28; TEMP 36.1–36.9; O2SAT 88–100
[2024-01-25 12:46] LABS: Abs Immature Grans 0.11 10^3/uL (0.0-0.06); Absolute Basophil Count 0.03 10^3/uL (0.0-0.2); Absolute Lymphocyte Count 1.41 10^3/uL (1.2-3.4); Absolute Monocyte Count 0.27 10^3/uL (0.1-0.8); Absolute Neutrophil Count 11.76 10^3/uL (1.2-6.7); Basophils % 0.2 %; Eosinophils % 0.7 %; HCT 30.5 % (36.0-46.0); HGB 9.9 g/dL (11.2-15.7); Immature Grans % 0.8 %; Lymphocytes % 10.3 %; MCH 38.2 pg (27.0-33.0); MCHC 32.5 % (32.0-36.0); MCV 118 fL (80-95); MPV 9.3 fL (8.0-11.0); Platelet Count 204 10^3/uL (130-400); RBC 2.59 10^6/uL (3.93-5.22); RDW-SD 65.5 fL; WBC 13.68 10^3/uL (4.4-10.8)
[2024-01-25 12:50] LABS: Lactate 2.2 mmol/L (0.6-1.4)
[2024-01-25] MEDS: Normal Saline 500 ML IV ×2 (12:56→13:41)
[2024-01-25 13:03] LABS: ALT 16 U/L (14-59); AST 22 U/L (15-37); Albumin 1.9 g/dL (3.4-5.0); Alkaline Phosphatase 114 U/L (46-116); BUN 4 mg/dL (7-18); Bilirubin, Total 0.52 mg/dL (0.2-1.0); CREATININE 0.8 mg/dL (0.55-1.02); Calcium 8.4 mg/dL (8.5-10.1); Chloride 100 mmol/L (98-107); Estimated GFR 89.15 (mL/min/1.73m2); Glucose 134 mg/dL (74-106); Potassium 3.6 mmol/L (3.5-5.1); Sodium 136 mmol/L (136-145)
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
[2024-01-25] MEDS: PIPERACILLIN/TAZO 3.375 GM in Normal Saline 50 ML IVPB ×2 (13:13→18:30)
[2024-01-25 13:24] LABS: Procalcitonin 0.1 ng/mL
[2024-01-25] MEDS: VANCOMYCIN/WATER (PEG) 2 GM/400 ML BAG IVPB (13:47)
[2024-01-25] MEDS: Omnipaque 350 MG/ML 100 ML BTL IJ (14:37)
[2024-01-25] MEDS: Normal Saline - Diluent 50 ML VIAL IJ (14:38)
--- NOTE | 2024-01-25 14:45 | DI.CT_ITS ---
Exam(s) CT ABDOMEN PELVIS W EXAM: CT ABDOMEN PELVIS W CLINICAL HISTORY: Cellulitis of pannus, eval for deeper infection. TECHNIQUE: Imaging Protocol: Axial computed tomography images with coronal and sagittal reformatted images were created and reviewed CONTRAST MATERIAL: Intravenous: Omnipaque 350 Contrast volume:100 ml Oral: no COMPARISON: CT CT thorax abd/pel CTA from 08/10/2018 FINDINGS: ABDOMEN and PELVIS: Lung Bases: No acute findings. Liver: Normal density. No suspicious mass. Gallbladder and biliary tract: The gallbladder is contracted. There is either high density material and/or enhancement of the gallbladder wall. Findings may represent a mass. Ultrasound recommended f or further evaluation. No biliary dilation. Pancreas: Normal density. No abnormal calcifications or inflammatory process. No evidence of mass. Spleen: Normal. Kidneys: Normal size, contour and axis. No radiodense stones. No obstructive uropathy. Stable cyst upper pole right kidney. Multiple other smaller cysts are also stable. No follow-up recommended. N o suspicious masses seen. Adrenal glands: No masses seen. Vasculature: Abdominal aorta non-dilated. Atherosclerotic changes. Soft tissues: Edema in soft tissues of bilateral flank regions. Edema in the inferior portion of the abdominal pannus. No visible abscess or drainable fluid collection. Bladder: No gross wall thickening. No calculi.No focal mass. Bowel: No obstruction. No bowel wall thickening. Appendix normal. Peritoneal cavity: No ascites. No focal collection. No mesenteric inflammatory response. Bones: Unremarkable for age. Reproductive organs: Unremarkable. Lymph nodes: No pathologically enlarged lymph nodes. IMPRESSION:: Edema in the inferior aspect of the abdominal pannus. No evidence of abscess. Edema a lso seen in the subcutaneous fat of the bilateral flank regions. Abnormal gallbladder wall enhancement which could indicate a mass. Ultrasound recommended for furthe r evaluation. Findings called to Dr. Napier of the emergency department. Unexpected findings RADIATION DOSE DELIVERED: Total DLP DATA REPOSITORY: All CT scans at this facility are submitted to the National Radiology Data Registry (NRDR) Dose Index Registry (DIR) with the [employer] (ACR). RADIATION OPTIMIZATION: All CT scans at this facility use at least one of these dose optimization te chniques: automated exposure control; mA and/or kV adjustment per patient size (includes targeted exa ms where dose is matched to clinical indication); or iterative reconstruction.
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
--- NOTE | 2024-01-25 15:57 | W.PC.ACHO ---
Registration Status: Primary Language: Preferred Language: ED Information & Data Chief Complaint RashLesion 01/25/24 13:13 Triage Note patient here for skin 01/25/24 11:49 infection of lower abdomen. was treated 3 weeks ago, did not f/u as advised. hurts to walk now due to this. Medical / Surgical History (Last Reviewed 01/25/24 @ 13:22 by Ty Napier DO) Myocardial infarction (Last Reviewed 01/25/24 @ 13:22 by Ty Napier DO) Rectal fistula History of coronary artery stent placement rectal fissure Most Recent Vital Signs Temperature 36.9 C 01/25/24 11:49 Temperature Source Oral 01/25/24 11:49 Pulse 102 H 01/25/24 15:31 Pulse 101 H 01/25/24 15:31 Respiratory Rate 19 01/25/24 15:31 Respiratory Effort Normal, Non-Labored 01/25/24 11:54 Blood Pressure 110/50 L 01/25/24 15:31 Blood Pressure Mean 70 01/25/24 15:31 Blood Pressure Position Sitting 01/25/24 11:49 Pulse Oximetry 98 01/25/24 15:31 Oxygen Delivery Method Room Air 01/25/24 11:49 Oxygen Flow Rate 0 01/25/24 11:49 Pain Level 9 01/25/24 11:49 Allergies venom-honey bee Allergy (Severe, Unverified 01/25/24 11:53) SWELLING Precautions Isolation Standard precaution 01/25/24 11:54 Active Medications Generic Name Dose Route Start Last Admin Trade Name Freq PRN Reason Stop Dose Admin Iohexol 100 ml 01/25/24 14:45 01/25/24 14:37 Omnipaque 350 Mg/Ml 100 Ml Btl IJ 02/24/24 23:59 100 ml DIRECTED EVELIA Administration Sodium Chloride 50 ml 01/25/24 14:45 01/25/24 14:38 Normal Saline - Diluent 50 Ml Vial IJ 50 ml .FOR DI USE EVELIA Administration IV IV Catheter Type [Left Saline Lock Antecubital] IV Catheter Gauge [Left 18 Antecubital] Diagnostics 01/25/24 Range/Units 12:37 WBC 13.68 H (4.4-10.8) 10^3/uL RBC 2.59 L (3.93-5.22) 10^6/uL Hgb 9.9 L (11.2-15.7) g/dL Hct 30.5 L (36.0-46.0) % MCV 118 H (80-95) fL MCH 38.2 H (27.0-33.0) pg MCHC 32.5 (32.0-36.0) % RDW 15.0 H (11.7-14.6) % Plt Count 204 (130-400) 10^3/uL MPV 9.3 (8.0-11.0) fL Immature Gran % 0.8 % Neutrophils % 86.0 % Lymphocytes % 10.3 % Monocytes % 2.0 % Eosinophils % 0.7 % Basophils % 0.2 % Nucleated RBC % 0.0 (0.0-0.3) % Absolute Neutrophils 11.76 H (1.2-6.7) 10^3/uL Absolute Lymphocytes 1.41 (1.2-3.4) 10^3/uL Absolute Monocytes 0.27 (0.1-0.8) 10^3/uL Absolute Eosinophils 0.10 (0.0-0.7) 10^3/uL Absolute Basophils 0.03 (0.0-0.2) 10^3/uL VBG Lactate 2.2 H* (0.6-1.4) mmol/L Sodium 136 (136-145) mmol/L Potassium 3.6 (3.5-5.1) mmol/L Chloride 100 (98-107) mmol/L Carbon Dioxide 32.0 (21.0-32.0) mmol/L Anion Gap 4.0 (3-11) mmol/L BUN 4 L (7-18) mg/dL Creatinine 0.8 (0.55-1.02) mg/dL Est GFR (CKD-EPI 2020) 89.15 (mL/min/1.73m2) Glucose 134 H (74-106) mg/dL Calcium 8.4 L (8.5-10.1) mg/dL Total Bilirubin 0.52 (0.2-1.0) mg/dL AST 22 (15-37) U/L ALT 16 (14-59) U/L Alkaline Phosphatase 114 (46-116) U/L Total Protein 6.0 L (6.4-8.2) g/dL Albumin 1.9 L (3.4-5.0) g/dL Procalcitonin 0.1 ng/mL 01/25/24 13:05 Blood Culture - Pending Blood 01/25/24 12:37 Blood Culture - Pending Blood Intake and Output - 24 Hour Total 01/25/24 11:40 thru 01/25/24 15:33 Intake Total 1050 Balance 1050 Weight 105.687 kg Intake: IV 1050 Falls Risk Assessment History of Falls No History 01/25/24 11:54 Contributing Factors Impairments 01/25/24 11:54 Ambulatory Aids Uses ambulatory device + 01/25/24 11:54 Tubes/Lines With any additional score 01/25/24 11:54 Gait Evaluation W/any additional score 01/25/24 11:54 Cognition No cognitive impairment 01/25/24 11:54 Fall Total Score 73 01/25/24 11:54 Level of Risk High Risk 01/25/24 11:54 Problems (Last Reviewed 01/25/24 @ 13:22 by Ty Napier DO) Severe sepsis (Acute) Abnormal CT scan, gallbladder (Acute) Abdominal wall cellulitis (Acute) HTN (hypertension) (Chronic) v v v v v v v v v Sending and/or Receiving Nurses: Please use comment section below to note any information pertinent to the patient hand-off not included above. Information / Comments: A&Ox4, abdominal cellulitis, open areas, 2 assist to commode Report received from: [place]
[2024-01-25] MEDS: Acetaminophen 325 MG TAB 650 MG PO ×2 (17:00→19:33)
[2024-01-25] MEDS: FLUCONAZOLE 200 MG/100 ML BAG 100 MG IVPB (17:30)
--- NOTE | 2024-01-25 18:35 | NUR.NOTE ---
Nursing Note:Per provider use toradol and lido for comfort during cleaning wounds and changing abd pads. Wound care; keep area clean wound mild soap and water, cover with abd to absorb seeping.
[2024-01-25 22:20] LABS: Lab Add On Test DONE
[2024-01-25 22:28] LABS: Lactate 1.2 mmol/L (0.6-1.4)
[2024-01-25] MEDS: Normal Saline 1,000 ML 100 ML IV (22:37)
[2024-01-26] MEDS: PIPERACILLIN/TAZO 3.375 GM in Normal Saline 50 ML IVPB ×5 (00:28→23:57)
[2024-01-26] MEDS: VANCOMYCIN/WATER (PEG) 1.5 GM/300 ML BAG IVPB (02:16)
[2024-01-26 07:00] VITALS: BP 102/59; PULSE 81; RESP 15; TEMP 36; O2SAT 100
[2024-01-26] MEDS: Acetaminophen 325 MG TAB 650 MG PO ×4 (08:00→19:56)
[2024-01-26] MEDS: Nystatin POWDER 15 GM JAR TP (08:00)
[2024-01-26] MEDS: Aspirin 81 MG CHEW 162 MG PO (08:00)
[2024-01-26 09:08] LABS: Anion Gap 4.9 mmol/L (3-11); BUN 3 mg/dL (7-18); CO2 31.1 mmol/L (21.0-32.0); CREATININE 0.7 mg/dL (0.55-1.02); Calcium 8.1 mg/dL (8.5-10.1); Chloride 103 mmol/L (98-107); Estimated GFR 104.65 (mL/min/1.73m2); Glucose 102 mg/dL (74-106); Potassium 3.2 mmol/L (3.5-5.1); Sodium 139 mmol/L (136-145); Vancomycin, Random 29.3 ug/mL
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
--- NOTE | 2024-01-26 10:38 | W.PM.PROGNOT ---
Date of Service Date of service: 01/26/24 Time of Service: 10:38 Assessment and Plan Assessment and plan (1) Severe sepsis: Status: Acute Assessment and plan: Meets criteria for severe sepsis with elevated white count elevated pulse source abdominal wall cellulitis blood cultures are pending Blood pressure is fluid responsive continue to monitor closely Follow lactic acid- last 1.2 (2) Abdominal wall cellulitis: Status: Acute Assessment and plan: Continue vancomycin and Zosyn and added Diflucan day 2 Vanc level 29 - adjustment as per pharmacy consult No evidence of abscess or necrotizing fasciitis on CT Skin care per routine can use lidocaine jelly prior to wound care to assist with pain management Keep skin folds dry Contnue acetaminophen and ketorolac as needed for pain (3) HTN (hypertension): Status: Chronic Assessment and plan: SBP 95- 110- hold meds at this time and blood pressure is low on presentation secondary to sepsis likely Monitor blood pressure (4) Hypokalemia: Status: Acute Assessment and plan: K 3.2, supplementation ordered Mg level ordered BMP and Mg in AM (5) Abnormal CT scan, gallbladder: Status: Acute Assessment and plan: Contracted GB - might represent mass- US recommended - Outpatient f/u Incidental finding on CAT scan should follow-up outpatient with primary care provider for further workup and recommendations (6) On deep vein thrombosis (DVT) prophylaxis: Status: Acute Assessment and plan: On LMWH (7) Discharge planning issues: Status: Acute Assessment and plan: Patient c/o of poor sleep and is inpatient to go home Will offer melatonin at HS Goal narrowing/ stepping down antibiotic GABRIEL for safe discharge Discussed with Subjective Subjective Patient reports: no new complaints, feels better, tolerating liquids well, tolerating a regular diet, voiding w/o difficulty, flatus and other (difficulty sleeping ); denies diarrhea, blood in stool, vomiting, shortness of breath or fever Exam Narrative Exam Narrative: Constitutional The patient is sitting in chair without acute distress Neuro:alert and oriented X3 Resp: Clear lung bilaterally Cardio: regular rhythm, S1, S2, no murmur, bilateral LEs edema, pedal pulse positive but faint GI: Abdomen is not distended, soft and non tender, bowel sounds are present : Negative Costovertebral angle tenderness, no bladder distension Back/spine/Pelvis: No back tenderness, normal alignment Integumentary: scattered bruises right UE, excoratied skin to right abd-groin < left abd-groin Extremities: strength 5/5 to bilateral lower and upper extremities Psych: RASS 0, congruent mood and normal affect. Objective Last Vital Signs Temp 36.0 C L 01/26/24 07:00 Pulse 81 01/26/24 07:00 Resp 15 01/26/24 07:00 BP 102/59 L 01/26/24 07:00 Pulse Ox 100 01/26/24 07:00 Laboratory Results - last 24 hr 01/25/24 01/25/24 12:37 22:23 WBC 13.68 H RBC 2.59 L Hgb 9.9 L Hct 30.5 L MCV 118 H MCH 38.2 H MCHC 32.5 RDW 15.0 H Plt Count 204 MPV 9.3 Immature Gran % 0.8 Neutrophils % 86.0 Lymphocytes % 10.3 Monocytes % 2.0 Eosinophils % 0.7 Basophils % 0.2 Nucleated RBC % 0.0 Absolute Neutrophils 11.76 H Absolute Lymphocytes 1.41 Absolute Monocytes 0.27 Absolute Eosinophils 0.10 Absolute Basophils 0.03 VBG Lactate 2.2 H* 1.2 Sodium 136 Potassium 3.6 Chloride 100 Carbon Dioxide 32.0 Anion Gap 4.0 BUN 4 L Creatinine 0.8 Est GFR (CKD-EPI 2020) 89.15 Glucose 134 H Calcium 8.4 L Total Bilirubin 0.52 AST 22 ALT 16 Alkaline Phosphatase 114 Total Protein 6.0 L Albumin 1.9 L Procalcitonin 0.1 Add-On Test Request DONE PAWSS Have you Been Recently Intoxicated or Drunk Within the Last 30 days?: No Have you Ever Experienced Previous Episodes of Alcohol Withdrawal?: No Have you ever Experienced Withdrawal Seizures?: No Have you ever Experienced Delirium Tremens(DT)s?: No Have you ever undergone Alcohol Rehabilitation Treatment (i.e, inpt ot outpatient treatment programs)?: No Have you ever Experienced Blackouts?: No Have you ever Combined Alcohol with other Downers within the last 90 days?: No Have you ever Combined Alcohol with any other Substance of Abuse during the last 90 days?: No Positive Blood Alcohol level on Presentation? [PCS.BAL]: No Evidence of Increased Autonomic Activity (i.e. HR>120, tremor, sweating, agitation, nausea)?: No Result: 0 Time Spent with Patient Time Spent with Patient: >50 minutes Time was spent: preparing to see the patient(eg.review tests), obtaining and/or reviewing separately otained hiistory, ordering medications,tests, procedures, referring, communicating with other health health care administrator, indepentently interpreting results, counseling the patient and care coordination
[2024-01-26] MEDS: Potassium Chloride 20 MEQ TABCR 40 MEQ PO (11:04)
[2024-01-26 11:52] LABS: Magnesium 1.9 mg/dL (1.8-2.4)
[2024-01-26 11:52] LABS: Absolute Eosinophil Count 0.27 10^3/uL (0.0-0.7); Absolute Lymphocyte Count 1.83 10^3/uL (1.2-3.4); Absolute Monocyte Count 0.29 10^3/uL (0.1-0.8); Absolute Neutrophil Count 8.75 10^3/uL (1.2-6.7); Basophils % 0.4 %; Eosinophils % 2.4 %; HCT 29.9 % (36.0-46.0); HGB 9.5 g/dL (11.2-15.7); Lymphocytes % 16.2 %; MCH 38.3 pg (27.0-33.0); MCHC 31.8 % (32.0-36.0); MCV 121 fL (80-95); MPV 9.3 fL (8.0-11.0); Monocytes % 2.6 %; Neutrophils % 77.6 %; Platelet Count 238 10^3/uL (130-400); RBC 2.48 10^6/uL (3.93-5.22); RDW 15.2 % (11.7-14.6); RDW-SD 67.5 fL; WBC 11.27 10^3/uL (4.4-10.8)
[2024-01-26 11:53] LABS: Hemoglobin A1C 5.1 % (<5.7)
[2024-01-26 11:53] LABS: Abs Immature Grans 0.09 10^3/uL (0.0-0.06); Absolute Basophil Count 0.04 10^3/uL (0.0-0.2); Immature Grans % 0.8 %
--- NOTE | 2024-01-26 13:03 | PHA.REVIEW2 ---
Pharmacy Admission Review Admission Clinical Review Admission Pharmacy Review: Hypokalemia (Acute) Severe sepsis (Acute) Abnormal CT scan, gallbladder (Acute) Abdominal wall cellulitis (Acute) venom-honey bee Allergy (Severe, Unverified 01/25/24 11:53) SWELLING Resuscitation Status Full Code Height 5 ft 6 in Weight 105.6 kg Comments Comments/Follow Ups: Waiting on cultures in order to switch patient to PO. Per morning meeting patient is not very compliant with medications and is requesting to be sent home. Pharmacy Admission Review Renal Dosing Renal Dosing: BUN 3 mg/dL (7-18) L 01/26/24 06:05 Creatinine 0.7 mg/dL (0.55-1.02) 01/26/24 06:05 Medications needing adjustments: Reviewed (CrCl 116.79 mL/min) List of meds needing interventions: Current medications are okay Anticoagulation Anticoagulation: Hgb 9.5 g/dL (11.2-15.7) L 01/26/24 06:05 Hct 29.9 % (36.0-46.0) L 01/26/24 06:05 Plt Count 238 10^3/uL (130-400) 01/26/24 06:05 Creatinine 0.7 mg/dL (0.55-1.02) 01/26/24 06:05 DVT Prophylaxis: Reviewed (Hgb decreased from 9.9) Medications: Enoxaparin (40mg daily) Relevant Labs Relevant Labs: Sodium 139 mmol/L (136-145) 01/26/24 06:05 Potassium 3.2 mmol/L (3.5-5.1) L 01/26/24 06:05 Chloride 103 mmol/L (98-107) 01/26/24 06:05 Magnesium 1.9 mg/dL (1.8-2.4) 01/26/24 11:13 Electrolytes, C-Reactive P, ESR: Reviewed (K 3.2 - repleting) Cardiac Review BP, HR, EF%: Reviewed (BP 102/59 and HR WNL) QTc Review QTc: Reviewed (No EKG on file) IV to PO Switch IV Medications: Reviewed (fluconazole, ketorolac, Zosyn and vancomycin) Home Meds Home Med List reviewed: Reviewed Current Meds Current Medication Order Review: Intervened Comments: Added IV admission order set Retimed fluconazole to be 24 hours from dose given in ED Pharmacy Antibiotic Review Relevant Labs: Relevant Labs 01/25/24 12:37 Procalcitonin 0.1 WBC 11.27 10^3/uL (4.4-10.8) H 01/26/24 06:05 Procalcitonin 0.1 ng/mL 01/25/24 12:37 Temperature 36.0 C Pharmacy Antibiotic Activity: C/S review and Reviewed, no change Comments: Patient is on fluconazole, Zosyn and vancomycin, day 1, for cellulitis/sepsis. Vancomycin random level obtained this morning at 0505. Based on level, dose was decreased to 1250mg q12h with predicted AUC of 578 and trough of 16.9. Repeat level ordered for tomorrow morning at 0600 with morning labs. Will adjust dose as needed. WBC decreased from 13.68. Blood cultures pending. Comments Comments/Follow Ups: Waiting on cultures in order to switch patient to PO. Per morning meeting patient is not very compliant with medications and is requesting to be sent home.
[2024-01-26] MEDS: Nystatin POWDER 60 GM JAR TP ×2 (13:25→20:03)
[2024-01-26] MEDS: Normal Saline Flush 10 ML SYR IVP (13:26)
[2024-01-26 14:59] VITALS: BP 107/63; PULSE 87; RESP 17; TEMP 36.1; O2SAT 100
--- NOTE | 2024-01-26 15:29 | CHAPLAIN ---
Yarelis was sitting up in bed when I visited. I explained my role and offered support. Yarelis did not seem interested in further conversation. She asked for a Sprite, which I got for her.
[2024-01-26] MEDS: FLUCONAZOLE 200 MG/100 ML BAG 100 MG IVPB (15:52)
[2024-01-26] MEDS: Enoxaparin 40 MG/0.4 ML SYR SC (17:26)
[2024-01-26 19:18] VITALS: BP 106/74; PULSE 81; RESP 18; TEMP 36.4; O2SAT 99
[2024-01-26] MEDS: Melatonin 3 MG TAB PO (19:57)
[2024-01-26] MEDS: Potassium Chloride 20 MEQ TABCR PO (19:57)
[2024-01-26] MEDS: VANCOMYCIN/WATER (PEG) 1.25 GM/250 ML BAG IVPB (22:01)
[2024-01-27 04:07] VITALS: BP 100/60; PULSE 88; RESP 18; TEMP 36.6; O2SAT 96
[2024-01-27] MEDS: PIPERACILLIN/TAZO 3.375 GM in Normal Saline 50 ML IVPB (06:07)
[2024-01-27 06:52] LABS: Abs Immature Grans 0.08 10^3/uL (0.0-0.06); Absolute Basophil Count 0.03 10^3/uL (0.0-0.2); Absolute Eosinophil Count 0.27 10^3/uL (0.0-0.7); Absolute Lymphocyte Count 1.81 10^3/uL (1.2-3.4); Absolute Monocyte Count 0.26 10^3/uL (0.1-0.8); Basophils % 0.4 %; Eosinophils % 3.2 %; HCT 25.8 % (36.0-46.0); HGB 8.4 g/dL (11.2-15.7); Lymphocytes % 21.7 %; MCH 38.5 pg (27.0-33.0); MCHC 32.6 % (32.0-36.0); MCV 118 fL (80-95); MPV 9.5 fL (8.0-11.0); Monocytes % 3.1 %; Neutrophils % 70.6 %; Platelet Count 178 10^3/uL (130-400); RBC 2.18 10^6/uL (3.93-5.22); RDW 15.5 % (11.7-14.6); RDW-SD 66.9 fL; WBC 8.35 10^3/uL (4.4-10.8)
[2024-01-27 07:07] LABS: Anion Gap 6.4 mmol/L (3-11); BUN 4 mg/dL (7-18); CO2 28.6 mmol/L (21.0-32.0); CREATININE 0.7 mg/dL (0.55-1.02); Calcium 7.9 mg/dL (8.5-10.1); Chloride 105 mmol/L (98-107); Estimated GFR 104.65 (mL/min/1.73m2); Glucose 85 mg/dL (74-106); Magnesium 1.8 mg/dL (1.8-2.4); Potassium 3.7 mmol/L (3.5-5.1); Sodium 140 mmol/L (136-145)
[2024-01-27 07:22] LABS: Diff Comment Diff Reviewed; Hypochromasia 1+; Macrocytosis 2+; Polychromasia Present
[2024-01-27 07:36] VITALS: BP 99/56; PULSE 85; RESP 18; TEMP 36.7; O2SAT 98
[2024-01-27 08:00] LABS: Vancomycin, Random 20.6 ug/mL
[2024-01-27] MEDS: Acetaminophen 325 MG TAB 650 MG PO ×4 (08:56→20:25)
[2024-01-27] MEDS: Aspirin 81 MG CHEW 162 MG PO (08:56)
[2024-01-27] MEDS: Potassium Chloride 20 MEQ TABCR PO ×2 (08:57→20:24)
[2024-01-27] MEDS: Nystatin POWDER 60 GM JAR TP ×3 (09:02→20:29)
--- NOTE | 2024-01-27 09:06 | PT.INIE ---
PT Notes Visit Reasons: Cellulitis Inpatient Physical Therapy Evaluation Date: 01/27/24 Referring Doctor: Jing Murphy NP PT Orders: PT CONSULT: safety consult for D/C Precautions: fall, standard Patient Profile/Admitting Diagnosis: Patient admitted 01/25/24 for medical management of severe sepsis and abdominal wall cellulitis. PT consult requested for safety consult for discharge planning. Social History/Home Situation: Yarelis resides in a multi-level home with her boyfriend and several family members. Has 3 HERIBERTO, which are challenging for her at baseline. She generally requires assistance from her boyfriend to manage. Has a flight of stairs to her bedroom, which she typically manages independently; has been sleeping on the couch for the past several weeks due to pain when managing stairs. Equipment Owned/DME: none Subjective: Yarelis states that she feels like she's moving around as she normally would. She continues to have pain when her skin rubs, which limits how far she can walk. She does report increased pain in her abdomen and right leg since last night; states that she has reported this to nursing and they are aware. Objective: General Observation: Resting in bed, no lines. Mental Status: A&Ox3 Pain: right leg/inner thigh, abdomen ROM: Right Upper Extremity: WFL Left Upper Extremity: WFL Right Lower Extremity: Functionally demonstrates hip flexion to 80*, knee motion0-90*. Ankle DF 5*. Left Lower Extremity: Functionally demonstrates hip flexion to 80*, knee motion0-90*. Ankle DF 5*. Strength: Right Upper Extremity: Shoulder flexion 4/5. Biceps 4/5. Triceps 3+/5. Regional Clinical Director is weak, but equal. Left Upper Extremity: Shoulder flexion 4/5. Biceps 4/5. Triceps 3+/5. Regional Clinical Director is weak, but equal. Right Lower Extremity: Hip flexion 3-/5 due to pain. Quads 4/5. Ankle DF 3+/5. Left Lower Extremity: Hip flexion 3-/5 due to pain. Quads 4/5. Ankle DF 3+/5. Bed Mobility/Transfers: supine-sit: independent sit-stand: independent stand-sit: independent Gait: Ambulates 30' with SBA, no AD. Trialled SPC for pain management, although patient feels that this gets in her way. Maintains wide JUICE, and reports increasing pain in medial thighs with distance, due to LE contact. Declines further ambulation or stair management. Balance: Static Sitting: normal Dynamic Sitting: normal Static Standing: good Dynamic Standing: good Special Tests: Mobility Limitations Standardized Measure [facility] AM-PAC 6 clicks Basic Mobility Inpatient Short Form: Raw Score: 22 CMS Score: 21% Informed Consent/Education: Patient instructed in purpose of PT consult and plan of care. Treatment: Initial Evaluation (94224) Therapeutic Exercises (20418) Instructed in seated exercises for performance every hour: ankle pumps 10x LAQ 10x shoulder flexion 10x Instructed in standing exercises to tolerance: standing march with hand hold assist 5x standing shoulder flexion, no external support, 10x sit-stand 3x, bilat UE support Assessment: Patient is a 49 year old female referred to physical therapy services with the diagnosis of sepsis and abdomonal wall cellulitis. Patient presents with clinical signs and symptoms consistent with diagnosis, with associated limitations in mobility. She is appropriate for discharge home once medically stable, with recommendation for HH PT for continued improvements in strength and activity tolerance (patient is not receptive to HH PT, however). She does have baseline difficulty with stairs, typically requiring assistance for management; she declines stair management with PT today. Will require transport assist to get into the home once discharged. She currently demonstrates the following impairment level findings: 1. limitations in activity tolerance due to pain 2. decreased UE and LE strength Impairments are contributing to the following functional limitations: 1. unable to independently manage stairs 2. unable to ambulate community distances due to pain Patient is assessed as a Low 24416 complexity based on the following: History: As above. Examination: functional limitations as above Presentation: stable Decision Making: low Plan of Care/Treatment Plan: No further PT intervention in acute care setting, as patient has anticipated discharge. DISCHARGE RECOMMENDATIONS: [] Home with HH PT, although patient declines HH PT referral. She is agreeable to considering outpatient PT once she's feeling better. Provided with HEP for completion at home independently. TREATMENT CODE/TIME: 9077-4225 (28081, 21899) Donna Starks, PT, DPT [facility] Please sign an return this page within 30 days if you agree with the above POC. Thank you! Physician Signature Date [facility], [facility]–1983 All Active Problems (Updated 01/26/24 @ 14:02 by Jing Murphy APRN) On deep vein thrombosis (DVT) prophylaxis (Acute) Discharge planning issues (Acute) Hypokalemia (Acute) Severe sepsis (Acute) Abnormal CT scan, gallbladder (Acute) Abdominal wall cellulitis (Acute) Sepsis (Acute) Prediabetes (Acute) Left conjunctivitis (Acute) Skin yeast infection (Acute) Tobacco dependence (Acute) > 30 Pack year hx Hyperlipemia (Acute) HTN (hypertension) (Chronic) Easy bruising (Acute) Medical History Myocardial infarction Surgical History Rectal fistula History of coronary artery stent placement 2 stents rectal fissure
[2024-01-27] MEDS: Normal Saline Flush 10 ML SYR IVP (10:34)
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
[2024-01-27 10:48] VITALS: BP 107/63; BP 121/69; BP 99/56; PULSE 83; PULSE 85; PULSE 97
[2024-01-27 11:33] LABS: Iron 37 ug/dL (50-170); Total Iron Binding Capacity 165 ug/dL (250-450); Transferrin Sat 22 % (15-50)
[2024-01-27] MEDS: Fluconazole 100 MG TAB 200 MG PO (12:00)
[2024-01-27] MEDS: Sulfameth/Trimeth DS TAB 1 TAB PO ×2 (12:01→20:25)
[2024-01-27 13:08] LABS: MRSA PCR Negative (Negative)
[2024-01-27] MEDS: Cyanocobalamin 500 MCG TAB PO (13:16)
[2024-01-27] MEDS: Folic Acid 1 MG TAB PO (13:16)
[2024-01-27] MEDS: Lactobacillus Acidophilus CAP 1 CAP PO ×2 (15:10→20:23)
--- NOTE | 2024-01-27 15:27 | PDOC.CMPRO ---
Date of service: 01/27/24 Time of Service: 15:27 Care Management Progress Note Progress Note Text Progress Note Text: Yarelis was sitting up in a chair when CM met with her. She informed CM that the redness on her abdomen is improving and she has been told she may be able to go home tomorrow. She seemed very pleased by the prospect. Yarelis did remind CM that she will need a a lift assist to get up the stairs into her home. Clinically Yarelis is doing well. She is afebrile and her vital signs are stable. Her IV antibiotics have been transitioned to oral and, per provider, will possibly be discharged tomorrow as long as the improvement continues.. Discharge Potential Discharge Needs: PCP F/U Appt Anticipated Barriers to Discharge: None Identified Patient/Family Education Needs: Review discharge instructions, discuss Ask Me Three Transportation: Private vehicle Plan: Yarelis will likely be discharged home with no new services. PT has recommended home health PT but Yarelis has declined those services. She informed CM that she has plenty of support at home provided by her family. Yarelis will follow up with her PCP and discharge plan of care and transport via [facility] coordinated by CM. She will likely need a lift assist from the local EMS or Fire department upon arrival. CM will follow and continue to assess for discharge needs. SDOH(Care Management) Screening Will the Patient Participate in the Screening?: Yes Do you worry about having a steady place to live?: no Problems where you live: no known problems In the past 12 months, have you had to go without electric, gas, oil or water in your home?: no Have you or anyone in your house had to go without enough food to eat?: no Has lack of transportation kept you from medical appointments or from doing things needed for daily living?: yes Has anyone in your support network made you feel unsafe for any reason?: no Health Related Social Needs Health related social needs: transportation insecurity(Z59.82)
[2024-01-27] MEDS: Enoxaparin 40 MG/0.4 ML SYR SC (18:05)
[2024-01-27 20:20] VITALS: BP 123/62; PULSE 85; RESP 16; TEMP 36.4; O2SAT 99
[2024-01-27] MEDS: Ferrous Sulfate 325 MG TAB PO (20:22)
[2024-01-27] MEDS: Melatonin 3 MG TAB PO (20:24)
[2024-01-28 00:37] VITALS: BP 106/60; PULSE 100; RESP 16; TEMP 36; O2SAT 92
[2024-01-28 03:15] VITALS: BP 101/61; PULSE 88; RESP 14; TEMP 35.5; O2SAT 98
[2024-01-28 07:15] LABS: Abs Immature Grans 0.16 10^3/uL (0.0-0.06); Absolute Basophil Count 0.04 10^3/uL (0.0-0.2); Absolute Eosinophil Count 0.23 10^3/uL (0.0-0.7); Absolute Lymphocyte Count 1.97 10^3/uL (1.2-3.4); Absolute Monocyte Count 0.21 10^3/uL (0.1-0.8); Absolute Neutrophil Count 5.21 10^3/uL (1.2-6.7); Basophils % 0.5 %; Eosinophils % 2.9 %; HGB 8.9 g/dL (11.2-15.7); Lymphocytes % 25.2 %; MCH 38.2 pg (27.0-33.0); MCHC 31.8 % (32.0-36.0); MPV 9.6 fL (8.0-11.0); Monocytes % 2.7 %; Neutrophils % 66.7 %; Platelet Count 193 10^3/uL (130-400); RBC 2.33 10^6/uL (3.93-5.22); RDW 15.6 % (11.7-14.6); RDW-SD 68.4 fL; WBC 7.82 10^3/uL (4.4-10.8)
[2024-01-28 07:22] LABS: MCV 120 fL (80-95)
[2024-01-28 07:58] LABS: BUN 1 mg/dL (7-18); CREATININE 0.7 mg/dL (0.55-1.02); Calcium 8.5 mg/dL (8.5-10.1); Chloride 105 mmol/L (98-107); Estimated GFR 104.65 (mL/min/1.73m2); Folate 1.6 ng/mL (8.6-20.0); Glucose 86 mg/dL (74-106); Potassium 3.9 mmol/L (3.5-5.1); Sodium 141 mmol/L (136-145); Vitamin B12 773 pg/mL (193-986)
[2024-01-28 08:05] VITALS: BP 101/55; PULSE 87; RESP 15; TEMP 36.2; O2SAT 98
[2024-01-28] MEDS: Aspirin 81 MG CHEW 162 MG PO (08:52)
[2024-01-28] MEDS: Folic Acid 1 MG TAB PO (08:52)
[2024-01-28] MEDS: Lactobacillus Acidophilus CAP 1 CAP PO ×2 (08:52→13:50)
[2024-01-28] MEDS: Ferrous Sulfate 325 MG TAB PO (08:52)
[2024-01-28] MEDS: Sulfameth/Trimeth DS TAB 1 TAB PO (08:53)
[2024-01-28] MEDS: Cyanocobalamin 500 MCG TAB PO (08:53)
[2024-01-28] MEDS: Potassium Chloride 20 MEQ TABCR PO (08:53)
[2024-01-28] MEDS: Fluconazole 100 MG TAB 200 MG PO (08:53)
[2024-01-28] MEDS: Nystatin POWDER 60 GM JAR TP (08:54)
--- NOTE | 2024-01-28 08:56 | W.PM.PROGNOT ---
Date of Service Date of service: 01/28/24 Time of Service: 08:56 Exam Narrative Exam Narrative: Constitutional The patient is sitting in chair without acute distress Neuro:alert and oriented X3 Resp: Clear lung bilaterally Cardio: regular rhythm, S1, S2, no murmur EXT: 2+ bilateral LEs edema, no cords or focal tenderness GI: Abdomen is not distended, soft and non tender, bowel sounds are present Integumentary: Dark pink/hyperpigmented skin across lower abdomen under pannus with open ulcerated areas, some pink scale on distal/groin side. Psych: congruent mood and normal affect. Objective Last Vital Signs Temp 36.2 C L 01/28/24 08:05 Pulse 87 01/28/24 08:05 Resp 15 01/28/24 08:05 BP 101/55 L 01/28/24 08:05 Pulse Ox 98 01/28/24 08:05 Laboratory Results - last 24 hr 01/27/24 01/27/24 01/28/24 10:15 11:25 06:30 WBC 7.82 RBC 2.33 L Hgb 8.9 L Hct 28.0 L MCV 120 H MCH 38.2 H MCHC 31.8 L RDW 15.6 H Plt Count 193 MPV 9.6 Immature Gran % 2.0 Neutrophils % 66.7 Lymphocytes % 25.2 Monocytes % 2.7 Eosinophils % 2.9 Basophils % 0.5 Nucleated RBC % 0.0 Absolute Neutrophils 5.21 Absolute Lymphocytes 1.97 Absolute Monocytes 0.21 Absolute Eosinophils 0.23 Absolute Basophils 0.04 Sodium 141 Potassium 3.9 Chloride 105 Carbon Dioxide 30.0 Anion Gap 6.0 BUN 1 L Creatinine 0.7 Est GFR (CKD-EPI 2020) 104.65 Glucose 86 Calcium 8.5 Iron 37 L TIBC 165 L Transferrin % Sat 22 Vitamin B12 Cancelled Folate MRSA (TEM-PCR) Negative 01/28/24 01/28/24 06:30 06:30 WBC RBC Hgb Hct MCV MCH MCHC RDW Plt Count MPV Immature Gran % Neutrophils % Lymphocytes % Monocytes % Eosinophils % Basophils % Nucleated RBC % Absolute Neutrophils Absolute Lymphocytes Absolute Monocytes Absolute Eosinophils Absolute Basophils Sodium Potassium Chloride Carbon Dioxide Anion Gap BUN Creatinine Est GFR (CKD-EPI 2020) Glucose Calcium Iron TIBC Transferrin % Sat Vitamin B12 773 Folate Cancelled 1.6 L MRSA (TEM-PCR) PAWSS Have you Been Recently Intoxicated or Drunk Within the Last 30 days?: No Have you Ever Experienced Previous Episodes of Alcohol Withdrawal?: No Have you ever Experienced Withdrawal Seizures?: No Have you ever Experienced Delirium Tremens(DT)s?: No Have you ever undergone Alcohol Rehabilitation Treatment (i.e, inpt ot outpatient treatment programs)?: No Have you ever Experienced Blackouts?: No Have you ever Combined Alcohol with other Downers within the last 90 days?: No Have you ever Combined Alcohol with any other Substance of Abuse during the last 90 days?: No Positive Blood Alcohol level on Presentation? [PCS.BAL]: No Evidence of Increased Autonomic Activity (i.e. HR>120, tremor, sweating, agitation, nausea)?: No Result: 0
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
--- NOTE | 2024-01-28 12:41 | PDOC.CMDIS ---
Date of service: 01/28/24 Time of Service: 12:41 LACE Index Scoring Tool Questions: Length of Stay (in days): 3 Was the patient admitted via the E.D.?: Yes E.D. Visits: 0 Answers: Total Score: 6 Risk of Readmission: Low Risk Care Management Discharge Plan Reason for Hospitalization: cellulitis Discharge Plan: Yarelis will return home with new orders for HH; patient stated that she is not sure that she will want HH services, but they were ordered by MD for her to discuss with [facility] and make a determination. CM coordinated transport via [facility], private vehicle. She will follow up with her PCP and discharge plan of care. She is happy to be going home. Patient/Family Education Needs: Review discharge instructions and limitations, discussion of self care needs including ask me three. Services Needed at Discharge: Home Health Care Services and Transportation ([facility] private vehicle) SDOH Health Related Social Needs: Health related social needs transpo insecurity Health related social needs: transportation insecurity(Z59.82) Referrals and interventions: Uses [facility] for transportation. Prefers private car vs bus.
[2024-01-30 10:16] LABS: Transferrin 140 mg/dL (201-352)
== END 2024-01-28 14:33 | disposition home health service (06) ==
LOC: ER 15:16 → MS 16:10
PROVIDERS: Nurse Practitioner Acute Care; Admitting Provider Family Medicine; Emergency Provider Student in an Organized Health Care Education/Training Program; PCP Nurse Practitioner Family; Visit Provider Family Medicine
DX: A41.9 Sepsis, unspecified organism (principal); R65.20 Severe sepsis without septic shock; R93.2 Abnormal findings on diagnostic imaging of liver and biliary tract; I10 Essential (primary) hypertension; E87.6 Hypokalemia; Z79.899 Other long term (current) drug therapy; D64.9 Anemia, unspecified; E78.5 Hyperlipidemia, unspecified; L03.311 Cellulitis of abdominal wall; R73.03 Prediabetes; I25.2 Old myocardial infarction; Z95.5 Presence of coronary angioplasty implant and graft; F17.210 Nicotine dependence, cigarettes, uncomplicated; F12.90 Cannabis use, unspecified, uncomplicated; E66.01 Morbid (severe) obesity due to excess calories; Z68.37 Body mass index [BMI] 37.0-37.9, adult
CPT/HCPCS: 00123; 36415; 80048; 80053; 84145; 87040; 87077; 87641; 96361; 96365; 96366; 96367; 96368; 96372; 97110; 97161; 99285; J1650; 74177; 80202; 82270; 82607; 82746; 83036; 83540; 83550; 83605; 83735; 84466; 85025; 87070; 87186; 87205; 99222; 99233; 99238; G0378; J1450; J2543; J3372; J3490

== ENCOUNTER 2024-02-03 16:32 | Outpatient (REF) | payer MEDICAID, SELFPAY ==
[2024-02-03 21:08] LABS: HGB 9.7 g/dL (11.2-15.7); MCH 37.9 pg (27.0-33.0); MCHC 32.3 % (32.0-36.0); MPV 9.6 fL (8.0-11.0); Platelet Count 344 10^3/uL (130-400); RBC 2.56 10^6/uL (3.93-5.22); RDW 16.1 % (11.7-14.6); RDW-SD 70.1 fL
[2024-02-03 21:23] LABS: ALT 23 U/L (14-59); AST 42 U/L (15-37); Albumin 2.2 g/dL (3.4-5.0); Alkaline Phosphatase 114 U/L (46-116); Anion Gap 7.1 mmol/L (3-11); BUN 5 mg/dL (7-18); Bilirubin, Total 0.27 mg/dL (0.2-1.0); CO2 29.9 mmol/L (21.0-32.0); CREATININE 0.9 mg/dL (0.55-1.02); Calcium 8.6 mg/dL (8.5-10.1); Calculated LDL 33 mg/dL (<100); Chloride 102 mmol/L (98-107); Cholesterol 99 mg/dL (<200); Glucose 102 mg/dL (74-106); HDL Cholesterol 47 mg/dL (40-60); Potassium 4.3 mmol/L (3.5-5.1); Sodium 139 mmol/L (136-145); Total Protein 5.9 g/dL (6.4-8.2); Triglyceride 97 mg/dL (<150)
[2024-02-03 21:28] LABS: MCV 117 fL (80-95)
== END 2024-02-03 16:33 | disposition home or self-care (01) ==
LOC: LBN 16:32
PROVIDERS: PCP Nurse Practitioner Family; Visit Provider Nurse Practitioner Family
DX: D64.9 Anemia, unspecified (principal); E78.5 Hyperlipidemia, unspecified
CPT/HCPCS: 80053; 80061; 85027